=== PATIENT | female | born 1965 | race African-American/Black ===

== ENCOUNTER 2018-07-07 17:19 | Emergency (ER) | payer OTHER ==
[~2018-07-07] VITALS: Ht 154.9 cm; Wt 125.6 kg
[~2018-07-07 17:19] MED LIST: ALBU8.5H6 IH; AMLO10TA6 PO; HYDR25TA9 PO; PRAV10TA2 PO; VENL37.57 PO
[2018-07-07 18:08] VITALS: BP 151/80
--- NOTE | 2018-07-07 18:40 | PHYS DOC ---
Past Medical History Past Medical History: Anxiety, Arthritis, Asthma, GERD, High Cholesterol, Hypertension, Other Additional Past Medical Histor: Herniated disk, chronic back pain, sleep apnea Past Surgical History: Angioplasty, , Tonsillectomy Alcohol Use: None Drug Use: None Adult General Chief Complaint Chief Complaint: LOWER EXT PAIN HPI HPI Patient is a 52 year old [f__sex] who presents with [] Review of Systems Review of Systems Constitutional: Denies fever or chills [] Eyes: Denies change in visual acuity, redness, or eye pain [] HENT: Denies nasal congestion or sore throat [] Respiratory: Denies cough or shortness of breath [] Cardiovascular: No additional information not addressed in HPI [] GI: Denies abdominal pain, nausea, vomiting, bloody stools or diarrhea [] : Denies dysuria or hematuria [] Musculoskeletal: Denies back pain or joint pain [] Integument: Denies rash or skin lesions [] Neurologic: Denies headache, focal weakness or sensory changes [] Endocrine: Denies polyuria or polydipsia [] All other systems were reviewed and found to be within normal limits, except as documented in this note. Allergies Allergies Allergies Coded Allergies Type Severity Reaction Last Updated Verified amoxicillin Allergy Intermediate Facial swelling 12/16/15 Yes clavulanic acid Allergy Intermediate Facial swelling 12/16/15 Yes codeine Allergy Intermediate Facial swelling and hallucinations 12/16/15 Yes Physical Exam Physical Exam Constitutional: Well developed, well nourished, no acute distress, non-toxic appearance. [] HENT: Normocephalic, atraumatic, bilateral external ears normal, oropharynx moist, no oral exudates, nose normal. [] Eyes: PERRLA, EOMI, conjunctiva normal, no discharge. [] Neck: Normal range of motion, no tenderness, supple, no stridor. [] Cardiovascular:Heart rate regular rhythm, no murmur [] Lungs & Thorax: Bilateral breath sounds clear to auscultation [] Abdomen: Bowel sounds normal, soft, no tenderness, no masses, no pulsatile masses. [] Skin: Warm, dry, no erythema, no rash. [] Back: No tenderness, no CVA tenderness. [] Extremities: No tenderness, no cyanosis, no clubbing, ROM intact, no edema. [] Neurologic: Alert and oriented X 3, normal motor function, normal sensory function, no focal deficits noted. [] Psychologic: Affect normal, judgement normal, mood normal. [] Current Patient Data Vital Signs Vital Signs Date Time Temp Pulse Resp B/P (MAP) Pulse Ox O2 Delivery O2 Flow Rate FiO2 07/07/18 18:08 99.2 151 18 151/80 (103) 96 Room Air 99.2 EKG EKG [] Radiology/Procedures Radiology/Procedures [] Course & Med Decision Making Course & Med Decision Making Patient reports today's pain is similar to previous exacerbation of her chronic back and knee pain. Patient denies any recent injury or falls. Patient states she is able to get her Percocet prescription filled tomorrow. Patient was offered dose of steroid however she refused but is willing to take dose of IM Toradol while in the ER. Patient takes Flexeril 3 times a day and is due for her night dose. Pt was neuro/vascular intact in all extremities and was seen with steady/unassisted gait. Dragon Disclaimer Dragon Disclaimer This electronic medical record was generated, in whole or in part, using a voice recognition dictation system. Departure Departure Impression: Primary Impression: Exacerbation of chronic back pain Additional Impression: Chronic knee pain Disposition: 01 HOME, SELF-CARE Condition: STABLE Referrals: MIGUEL ROMANO (PCP) Patient Instructions: Chronic Pain Additional Instructions: As discussed continue home pain medications as prescribed. You can take ibuprofen as directed on container. Discuss with your primary doctor options for pain management to assist with managing chronic pain. Problem Qualifiers MARIA ALEJANDRA UP APRN Jul 07, 2018 18:40
[2018-07-07] MEDS ORDERED: KETOROLAC 60 MG/2 ML INJ. IM ONE (18:45)
== END 2018-07-07 19:09 | disposition home or self-care (01) ==
LOC: ER 17:19
DX: G89.29 Other chronic pain (principal); M54.9 Dorsalgia, unspecified; M25.569 Pain in unspecified knee; J45.909 Unspecified asthma, uncomplicated; K21.9 Gastro-esophageal reflux disease without esophagitis; E78.00 Pure hypercholesterolemia, unspecified; I10 Essential (primary) hypertension; Z88.1 Allergy status to other antibiotic agents; Z88.5 Allergy status to narcotic agent; Z88.8 Allergy status to other drugs, medicaments and biological substances
CPT/HCPCS: 96372; 99283; J1885